=== PATIENT | female | born 1995 | race African-American/Black ===

== ENCOUNTER 2017-06-19 17:47 | Emergency (ER) | payer OTHER ==
[~2017-06-19] VITALS: Ht 154.9 cm; Wt 58.1 kg
[2017-06-19] MEDS ORDERED: VISTARIL 25 MG25 M1 PO (18:51)
== END 2017-06-19 19:00 | disposition home or self-care (01) ==
LOC: ER 17:47
DX: F41.9 Anxiety disorder, unspecified (principal); J45.909 Unspecified asthma, uncomplicated; F17.210 Nicotine dependence, cigarettes, uncomplicated

== ENCOUNTER 2017-08-16 17:44 | Emergency (ER) | payer OTHER ==
[~2017-08-16] VITALS: Ht 154.9 cm; Wt 56.7 kg
[~2017-08-16 17:44] MED LIST: VISTARIL 25 MG25 M1 PO
[2017-08-16 17:47] VITALS: BP 105/58
[2017-08-16] MEDS ORDERED: MOBIC15 MG PO (18:54)
== END 2017-08-16 19:30 | disposition home or self-care (01) ==
LOC: ER 17:44
DX: S63.636A Sprain of interphalangeal joint of right little finger, initial encounter (principal); S61.306A Unspecified open wound of right little finger with damage to nail, initial encounter; J45.909 Unspecified asthma, uncomplicated; F17.210 Nicotine dependence, cigarettes, uncomplicated; Z23 Encounter for immunization; X58.XXXA Exposure to other specified factors, initial encounter; Y93.89 Activity, other specified; Y92.89 Other specified places as the place of occurrence of the external cause; Y99.8 Other external cause status

== ENCOUNTER 2021-01-05 16:56 | Emergency (ER) | payer OTHER ==
[~2021-01-05] VITALS: Ht 154.9 cm; Wt 52.2 kg
[~2021-01-05 16:56] MED LIST changes: +MOBIC15 MG PO
[2021-01-05 17:31] VITALS: BP 97/58
== END 2021-01-05 17:48 | disposition home or self-care (01) ==
LOC: ER 16:56
DX: S61.210A Laceration without foreign body of right index finger without damage to nail, initial encounter (principal); J45.909 Unspecified asthma, uncomplicated; F17.210 Nicotine dependence, cigarettes, uncomplicated; Z88.1 Allergy status to other antibiotic agents; W25.XXXA Contact with sharp glass, initial encounter; Y93.89 Activity, other specified; Y92.89 Other specified places as the place of occurrence of the external cause; Y99.8 Other external cause status